=== PATIENT | female | born 1955 | race Caucasian/White ===

== ENCOUNTER 2017-05-18 13:55 | Outpatient (CLI) | payer OTHER ==
--- NOTE | 2017-05-18 15:48 | SJPRAD ---
RIGHT KNEE TWO VIEWS: History: 61-year-old female with left knee pain, for comparison. FINDINGS: Two views of the right knee demonstrates tricompartment arthrosis and degenerative changes with narr owing of the medial compartment. IMPRESSION: Tricompartment osteoarthrosis with narrowing, particularly of the medial compartment, followed by th e femoral patellar compartment. No acute fracture or dislocation. POS: OFF
--- NOTE | 2017-05-18 15:49 | SJPRAD ---
LEFT KNEE TWO VIEWS: History: 61-year-old female with left knee pain. FINDINGS: Tricompartment arthrosis and degenerative changes with narrowing of the medial compartment in partic ular. No fracture, dislocation, or other acute process. IMPRESSION: No fracture or dislocation. Degenerative changes. POS: OFF
== END 2017-05-18 13:56 | disposition home or self-care (01) ==
LOC: MWLC RAD 13:55
PROVIDERS: ATTEND Family Medicine
DX: M25.562 Pain in left knee (principal); M17.11 Unilateral primary osteoarthritis, right knee

== ENCOUNTER 2018-01-02 06:47 | Outpatient (CLI) | payer OTHER | END 2018-01-02 06:48 | disposition home or self-care (01) | LOC: BICULT 06:47 | PROVIDERS: ATTEND Family Medicine | DX: M79.89 Other specified soft tissue disorders (principal) ==

== ENCOUNTER 2018-01-23 06:41 | Outpatient (CLI) | payer OTHER | END 2018-01-23 06:42 | disposition home or self-care (01) | LOC: BICULT 06:41 | PROVIDERS: ATTEND Family Medicine | DX: N85.2 Hypertrophy of uterus (principal); R93.8 Abnormal findings on diagnostic imaging of other specified body structures | CPT/HCPCS: 76856 ==

== ENCOUNTER 2018-05-23 15:41 | Outpatient (CLI) | payer OTHER | END 2018-05-23 15:42 | disposition home or self-care (01) | LOC: BICMAMMO 15:41 | PROVIDERS: ATTEND Family Medicine | DX: Z12.31 Encounter for screening mammogram for malignant neoplasm of breast (principal); Z85.3 Personal history of malignant neoplasm of breast | CPT/HCPCS: 77063; 77067 ==

== ENCOUNTER 2018-10-19 09:54 | Day surgery (SDC) | payer OTHER ==
[2018-10-18 09:45] VITALS: BMI 39.0
[2018-10-18 10:58] LABS: #Basophils 0.1 thou/uL (0.0-0.2); #Eosinphils 0.2 thou/uL (0.0-0.7); #Lymphocytes 2.4 thou/uL (1.20-3.40); #Monocytes 0.9 thou/uL (0.11-0.59); #Neutrophils 4.5 thou/uL (1.40-6.50); %Basophils 0.8 % (0.0-1.0); %Lymphocytes 29.6 % (21.0-51.0); %Monocytes 11.3 % (0.0-10.0); %Neutrophils 55.3 % (42.0-75.0); Hemoglobin 13.2 g/dL (12.0-16.0); Mean Corpuscular HGB CONC 31.2 g/dL (32.0-36.0); Mean Corpuscular Hemoglobin 26.2 pg (27.0-31.0); Mean Corpuscular Volume 83.9 fL (78.0-98.0); Mean Platelet Volume 9.9 fL (7.4-10.4); Platelet Count 178 thou/uL (130-400); RBC Distribution Width 12.6 % (11.5-14.5); Red Blood Cell (RBC) Count 5.04 mill/uL (4.20-5.40); White Blood Cell (WBC) Count 8.1 thou/uL (4.8-10.8)
[2018-10-19] MEDS ORDERED: Dexamethasone 20 MG/5 ML VIAL ONE (12:11)
[2018-10-19] MEDS ORDERED: PROPOFOL 200 MG/20 ML VIAL ONE (12:11)
[2018-10-19] MEDS ORDERED: Ondansetron PF 4 MG/2 ML Vial ONE (12:11)
[2018-10-19] MEDS ORDERED: Lidocaine 1% PF 5 ML VIAL ONE (12:11)
[2018-10-19] MEDS ORDERED: Fentanyl 100 MCG/2 ML VIAL ONE (12:15)
[2018-10-19] MEDS ORDERED: Midazolam HCl 2 mg/2 ml Vial ONE (12:15)
--- NOTE | 2018-10-19 22:31 | OP ---
DATE OF PROCEDURE: 10/19/2018 PREOPERATIVE DIAGNOSES: 1. A 63-year-old female with prior estrogen receptor-positive breast cancer, on tamoxifen therapy for many years. 2. Recent postmenopausal bleeding with thickened endometrial lining noted. Endometrial biopsy initially was benign. POSTOPERATIVE DIAGNOSES: 1. A 63-year-old female with prior estrogen receptor-positive breast cancer, on tamoxifen therapy for many years. 2. Recent postmenopausal bleeding with thickened endometrial lining noted. Endometrial biopsy initially was benign. 3. Appears to have uterine synechiae, possible polyp. PROCEDURE PERFORMED: Diagnostic hysteroscopy with dilation and curettage with TruClear incisor, removal of synechial areas. FLUID DEFICIT: 150 mL of normal saline. COMPLICATIONS: None. COUNTS: Correct x2. ANTIBIOTICS: 2 g Ancef, on-call to OR. FINDINGS: 1. The uterine lining had some elevated roughened areas that were somewhat hyperemic, possibly consistent with synechial changes. No true ulcerative or exophytic lesions were seen. The remainder of the cavity was sampled with the incisor TruClear resection instrument and then also sharp curettage. The cavity was sent for final diagnosis. DISPOSITION: Recovery room, stable. DESCRIPTION OF OPERATIVE PROCEDURE: The patient received general with LMA, was prepped and draped in usual sterile fashion in dorsal lithotomy position. In and out catheterization of bladder was performed with 200 mL of clear urine. A side-arm speculum was placed in the vagina. The anterior lip of the cervix was grasped with single-tooth tenaculum. The uterus sounded to 9 cm and the cervix was sequentially dilated to a size 16 mm Krishna dilator. The diagnostic 5 mm TruClear system hysteroscope was introduced through the cervical os into the endocervical, endometrial cavity with the previously mentioned findings. Then, the incisor 5 mm instrument was utilized under direct visualization with evaluation and excision of some of the synechial appearing tissue. Then sharp curettage was performed. All the final pathology specimens were sent including the endometrial curettings and the incisor directed biopsies. The tenaculum was then removed along with the speculum and the patient was then awakened from anesthesia. There was no active vaginal bleeding noted. Plan is to follow up the pathology. She will be observed in the PACU and discharged home when she meets criteria for this. She has a followup in approximately 4 weeks and within a week for the pathology review. Job ID: [id number]
== END 2018-10-19 15:25 | disposition home or self-care (01) ==
LOC: SDC 09:54
PROVIDERS: ATTEND Obstetrics & Gynecology
PROC: 0UDB8ZX Extraction of Endometrium, Via Natural or Artificial Opening Endoscopic, Diagnostic (ICD-10-PCS; principal; 2018-10-19)
DX: N95.0 Postmenopausal bleeding (principal); M81.0 Age-related osteoporosis without current pathological fracture; Z85.3 Personal history of malignant neoplasm of breast; Z98.890 Other specified postprocedural states
CPT/HCPCS: 36415; 85025; 86850; 86900; 86901; 88305; J1100; J2001; J2250; J2405; J2704; J3010

== ENCOUNTER 2019-05-24 15:20 | Outpatient (CLI) | payer OTHER ==
--- NOTE | 2019-05-24 16:05 | MMO ---
Bilateral MAMMO Bilat Screen [facility]. CLINICAL HISTORY: Patient is 63 years old and is seen for screening. The patient has no family history of breast cancer. The patient has a history of lobular carcinoma in-situ (LCIS) in the left breast at age 51. VIEWS: The views performed were: bilateral craniocaudal with tomosynthesis and bilateral mediolateral oblique with tomosynthesis. FILMS COMPARED: The present examination has been compared to prior imaging studies performed at [facility] on 05/23/2018, and at [facility] on 08/14/2014, 10/01/2015 and 12/14/2016. This study has been interpreted with the assistance of computer-aided detection. MAMMOGRAM FINDINGS: There are scattered fibroglandular densities. Post-surgical scar left breast. There are no suspicious masses, suspicious calcifications, or new areas of architectural distortion. IMPRESSION: THERE IS NO MAMMOGRAPHIC EVIDENCE OF MALIGNANCY. A ROUTINE FOLLOW-UP MAMMOGRAM IN 1 YEAR IS RECOMMENDED. THE RESULTS OF THIS EXAM WERE SENT TO THE PATIENT. ACR BI-RADS Category 2 - Benign finding MAMMOGRAPHY NOTE: 1. A negative mammogram report should not delay a biopsy if a dominant of clinically suspicious mass is present. 2. Approximately 10% to 15% of breast cancers are not detected by mammography. 3. Adenosis and dense breasts may obscure an underlying neoplasm. Reported by: Ezekiel FARFAN Electonically Signed: [id number]
== END 2019-05-24 15:21 | disposition home or self-care (01) ==
LOC: BICMAMMO 15:20
PROVIDERS: ATTEND Family Medicine
DX: Z12.31 Encounter for screening mammogram for malignant neoplasm of breast (principal); Z85.3 Personal history of malignant neoplasm of breast
CPT/HCPCS: 77063; 77067

== ENCOUNTER 2019-09-13 14:42 | Outpatient (CLI) | payer OTHER ==
--- NOTE | 2019-09-13 15:31 | BD ---
DEXA BONE MINERAL DENSITY STUDY: HISTORY: Encounter for a screening for osteoporosis. COMPARISON: None. FINDINGS: Lumbar Spine: BMD (g/cm2) L1 0.768 T-Score: -1.7 -0.3 L2 0.892 T-Score: -1.2 0.4 L3 0.898 T-Score: -1.7 0.0 L4 1.114 T-Score: 0.5 2.2 L1-L4 0.929 T-Score: -1.1 0.5 Left: Femoral Neck: 0.644 T-Score: -1.8 -0.4 Total Femur: 0.823 T-Score: -1.0 0.1 WHO CALCIFICATION: Osteopenia. Impression: Osteopenia with elevated fracture risk. POS: OFF
== END 2019-09-13 14:43 | disposition home or self-care (01) ==
LOC: BICMAMMO 14:42
PROVIDERS: ATTEND Obstetrics & Gynecology
DX: Z13.820 Encounter for screening for osteoporosis (principal); M85.89 Other specified disorders of bone density and structure, multiple sites
CPT/HCPCS: 77080

== ENCOUNTER 2019-11-13 07:05 | Day surgery (SDC) | payer OTHER ==
[2019-11-12 10:37] LABS: Mean Corpuscular HGB CONC 31.4 g/dL (32.0-36.0); Mean Corpuscular Hemoglobin 27.1 pg (27.0-31.0); Mean Corpuscular Volume 86.3 fL (78.0-98.0); Mean Platelet Volume 11.1 fL (7.4-10.4); Platelet Count 156 thou/uL (130-400); RBC Distribution Width 12.6 % (11.5-14.5); Red Blood Cell (RBC) Count 4.82 mill/uL (4.20-5.40); White Blood Cell (WBC) Count 8.7 thou/uL (4.8-10.8)
[2019-11-13] MEDS ORDERED: Famotidine/PF 20 mg/2ml Vial ONE (07:31)
[2019-11-13] MEDS ORDERED: Gabapentin 300 MG CAP ONE (07:31)
[2019-11-13] MEDS ORDERED: CeleCOXIB 100 MG CAP ONE (07:31)
[2019-11-13] MEDS ORDERED: Bupivacaine PF 0.5% 30 ML VIAL ONE (07:42)
[2019-11-13] MEDS ORDERED: Lidocaine 1% w/Epinephrine 1:100K 20 ML VIAL ONE (07:42)
[2019-11-13] MEDS ORDERED: Fentanyl 250 MCG/5 ML VIAL ONE (08:52)
[2019-11-13] MEDS ORDERED: Midazolam HCl 2 mg/2 ml Vial ONE (08:53)
[2019-11-13] MEDS ORDERED: EPHEDRINE 25 MG/5 ML SYRINGE ONE (09:56)
[2019-11-13] MEDS ORDERED: Ondansetron PF 4 MG/2 ML Vial ONE (09:56)
[2019-11-13] MEDS ORDERED: PROPOFOL 200 MG/20 ML VIAL ONE (09:56)
[2019-11-13] MEDS ORDERED: diphenhydrAMINE 50 MG/ML VIAL ONE (09:56)
[2019-11-13] MEDS ORDERED: Dexamethasone 20 MG/5 ML VIAL ONE (09:56)
[2019-11-13] MEDS ORDERED: Rocuronium Bromide 10 MG/ML (10ML VIAL) ONE (09:56)
[2019-11-13] MEDS ORDERED: Succinylcholine Chloride 20 MG/ML 10 ml SYRINGE FS ONE (09:56)
[2019-11-13] MEDS ORDERED: Glycopyrrolate 0.2 MG/ML 5 ML SYRINGE ONE (09:56)
[2019-11-13] MEDS ORDERED: Acetaminophen 325 MG TAB PO PRN (11:41)
[2019-11-13] MEDS ORDERED: Simethicone Chewable 80 MG TAB PO PRN (11:41)
[2019-11-13] MEDS ORDERED: Bisacodyl 10 MG SUPP PR PRN (11:41)
[2019-11-13] MEDS ORDERED: Promethazine HCl 25 MG/ML VIAL IM PRN (11:41)
[2019-11-13] MEDS ORDERED: traMADol HCl 50 MG TAB PO PRN ×2 (11:41)
[2019-11-13] MEDS ORDERED: diphenhydrAMINE 25 MG CAP PO PRN (11:41)
[2019-11-13] MEDS ORDERED: Ondansetron PF 4 MG/2 ML Vial IVP PRN (11:41)
[2019-11-13] MEDS ORDERED: Morphine 2 MG/ML SYRINGE SLOW IVP PRN (11:41)
[2019-11-13] MEDS: Lactated Ringer's 1,000 ML IV SCH (17:25)
[2019-11-13] MEDS: Ketorolac Tromethamine 30 MG/ML VIAL IVP SCH ×2 (17:25→18:13)
[2019-11-13] MEDS ORDERED: Sodium Chloride 0.9% 10 ML ONE (18:11)
[2019-11-14] MEDS: Ketorolac Tromethamine 30 MG/ML VIAL IVP SCH ×2 (00:03→05:40)
[2019-11-14] MEDS: Lactated Ringer's 1,000 ML IV SCH ×2 (00:16→10:07)
[2019-11-14 06:15] LABS: Mean Corpuscular HGB CONC 31.1 g/dL (32.0-36.0); Mean Corpuscular Hemoglobin 26.7 pg (27.0-31.0); Mean Corpuscular Volume 85.9 fL (78.0-98.0); Mean Platelet Volume 10.2 fL (7.4-10.4); Platelet Count 153 thou/uL (130-400); RBC Distribution Width 12.8 % (11.5-14.5); Red Blood Cell (RBC) Count 4.49 mill/uL (4.20-5.40); White Blood Cell (WBC) Count 16.3 thou/uL (4.8-10.8)
--- NOTE | 2019-11-14 07:39 | PDOC.EVN ---
Event Note - Event Note Event Note: S: Tolerating diet. Good pain control. No nausea. Passing flatus. O: AFVSS U/O 2950 ml HCT 38% ABD: soft/non distended. Trochar sites c/d/i..Expected post op tenderness. A/P: Post op day 1 from robotic tlh/bso for recurrent post menopausal bleeding and endometrial hyperplasia. Doing well. D/c home today after voids. has follow up post op day 2 and 6 weeks.
--- NOTE | 2019-11-14 08:11 | DIS ---
DATE OF ADMISSION: 11/13/2019 DATE OF DISCHARGE: 11/14/2019 DIAGNOSES: 1. Postmenopausal bleeding. 2. Endometrial hyperplasia. 3. History of tamoxifen therapy. PROCEDURE PERFORMED: Robotic TLH-BSO. SUMMARY OF HOSPITAL COURSE: Ms. Lira is a 64-year-old [place] female with history of left breast cancer approximately over 10 years ago, but had extensive tamoxifen therapy in the past, who had an episode of postmenopausal bleeding evaluated in 2019. She had a hysteroscopy, D and C performed at that time. Benign findings were noted with some mild changes and simple hyperplasia. She did well until recently started having postmenopausal bleeding again. She was assessed. She had a thickened endometrial lining of over 11 mm with endometrial biopsy showing simple endometrial hyperplasia. She underwent definitive surgical therapy with a robotic TLH-BSO on 11/12. Postoperatively, she has done well. Vital signs remained stable. Urine output has been excellent over 2900 mL of past 24 hours. She is ambulating and voiding and tolerating a regular diet and passing flatus. She had a postoperative hematocrit this morning of 38.6%. She will be discharged home to continue her maintenance medications along with tramadol 50 mg q.6 hours p.r.n. pain. She has also told she can use [id number] Tylenol, Motrin for mild pain. She has a followup in 2 and 6 weeks. Pathology is pending. Job ID: [id number]
--- NOTE | 2019-11-14 09:01 | OP ---
DATE OF PROCEDURE: 11/13/2019 PREOPERATIVE DIAGNOSES: 1. A 64-year-old female with history of postmenopausal bleeding. 2. Simple endometrial hyperplasia. 3. Long history of prior tamoxifen usage. 4. History of estrogen receptor positive, progesterone receptor positive breast cancer. POSTOPERATIVE DIAGNOSES: 1. A 64-year-old female with history of postmenopausal bleeding. 2. Simple endometrial hyperplasia. 3. Long history of prior tamoxifen usage. 4. History of estrogen receptor positive, progesterone receptor positive breast cancer. PROCEDURES PERFORMED: Robotic total laparoscopic hysterectomy and bilateral salpingo-oophorectomy. DESIGN SALES CONSULTANT SURGEON: Ning Be MD ANESTHESIA: General endotracheal. ESTIMATED BLOOD LOSS: 50 mL. COMPLICATIONS: None. COUNTS: Correct x2. ANTIBIOTICS: 2 g Ancef on-call to OR. FINDINGS: 1. Normal-appearing bilateral postmenopausal tubes and ovaries. 2. Adenomyotic-appearing uterus, approximately 8-week size. 3. Clear urine in Wu catheter postprocedure and bladder was watertight to distention over 300 mL postprocedure. 4. Bilateral ureteral peristalsis visualized postprocedure. DISPOSITION: To recovery room. DESCRIPTION OF PROCEDURE: The patient previously received informed consent in regard to surgery. She was taken back to the operating room, where she received a general endotracheal anesthetic agent without complications. She was then placed in dorsal lithotomy position and prepped and draped in usual sterile fashion. At this time, a side-arm speculum was placed in the vagina after Wu catheter had been placed. The cervix was grasped with a single-tooth tenaculum. The uterus sounded to 8 cm. The cervix was then sequentially dilated to a size 16 Krishna dilator, and then a size 8-cm LINDA uterine manipulator with a 3.5 cm cervical cup was placed in usual fashion. Tenaculum and speculum had been removed. Attention was then turned to the abdomen, where prospective trocar sites were infiltrated with 0.5% Marcaine with epinephrine. A 10-cm supraumbilical incision was made. Veress needle was entered into the peritoneal cavity, and the patient's pressure was noted to be less than 5 mmHg. The abdomen was insufflated to patient's pressure of 15, approximately 4.5 L of carbon dioxide gas. The Veress needle was then removed. A size 12-mm trocar was then placed in the supraumbilical incision, and then the robotic laparoscope was introduced through the trocar sleeve confirming proper entry. The patient was then placed in a more Trendelenburg position, and bilateral lower quadrant 8-mm robotic trocars were placed under laparoscopic guidance along with the right upper quadrant 11-mm assistant to the vice president port. We then docked the robot in usual fashion. I then broke scrub, and I carried out the procedure from the operative console while my assistants remained at the bedside. The uterus was elevated from the pelvis with previously mentioned findings. The left fallopian tube was grasped by my assistant to the vice president. The left infundibulopelvic ligament was then coagulated hugging close to the ovary and away from the pelvic sidewall, it was coagulated and transected. Serial coagulation of the broad ligament hugging close to the uterine specimen was carried out until the left round ligament was reached. It was coagulated and transected, and then the anterior leaf of the broad ligament was entered. The vesicouterine peritoneum was incised in a layering technique, dropping the bladder past the cervicovaginal angle. The uterine vessels were then skeletonized in a layering technique, obtaining hemostasis as this was carried out and then the uterine vessels were coagulated in the internal cervical os region. The right fallopian tube was then grasped by my assistant to the vice president. The right IP ligament was coagulated, hugging close to the ovary and then this was transected. The patient had worm-like IP ligament vessels that were dilated on the right pelvic sidewall. This was taken with care to meticulously coagulate the vessels prior to each transection. I then coagulated the right round ligament and transected this and entered the anterior leaf of the broad ligament, dissecting the vesicouterine peritoneum, meeting in the midline where it had previously been dissected from the patient's left side. Layering on the broad ligament was carried out to the window that had been created from the dissection of the IP ligament was reached and this created an adequate hemostasis due to the wormy-like vessels on the infundibulopelvic ligament. The uterine vessels were then skeletonized and coagulated in the internal cervical os region. We then distended the bladder to confirm that it had been adequately dissected, past the cervicovaginal location, and it was confirmed to be well past the anticipated anterior colpotomy. The anterior colpotomy was then created starting at the 12 o'clock to 3 o'clock and then 12 o'clock to 9 o'clock. The uterine vessels were again coagulated meticulously at the 3 o'clock and 9 o'clock position securing hemostasis. We then completed the colpotomy from 6 o'clock to 3 o'clock and 6 o'clock to 9 o'clock. The uterine specimen was then brought down into the vaginal vault. During this process, there was one area of bleeder that was noted to occur after the specimen was brought into the vaginal vault and by the right uterine vessel. This was grasped with a needle carrier driver and then coagulated on end with a bipolar fenestrated cautery. Hemostasis was confirmed and was obtained. The vaginal cuff was then coagulated of any areas there were oozing prior to cuff closure. My assistant to the vice president then brought in a Stratafix suture. I began suturing the right vaginal angle, starting on the right side full-thickness closure from the right angle to the midline and to the left angle with good closure noted. Hemostasis was confirmed. We then again suctioned and irrigated the pelvis. All pedicle sites were noted to be hemostatic. The courses of each ureter were visualized and the peristalsis was noted. Clear urine was draining from the Wu catheter. We dropped the pressure down below 8 mm pressure and hemostasis on the pedicle sites again was confirmed. We then undocked the robot, and the trocar sleeves were removed. I then rescrubbed. Then, we closed the deep fascial suture of [id number] stitch fashion of the umbilical incision, and then all the other trocar sites were closed with Monocryl 4-0 in subcuticular fashion. The vaginal vault was checked with a sponge stick and hemostasis was confirmed after the specimen had been removed. The patient was awakened from anesthesia, transferred to recovery room in stable condition. Job ID: [id number]
[2019-11-14 11:40] VITALS: BP 121/74; TEMP 97.7
[2019-11-18] MEDS ORDERED: Ibuprofen 800 MG TAB PO SCH (09:00)
== END 2019-11-14 12:04 | disposition home or self-care (01) ==
LOC: SDC 07:05 → 3SW 13:51 → SDC 11-14 12:04
PROVIDERS: ATTEND Obstetrics & Gynecology
PROC: 0UT24ZZ Resection of Bilateral Ovaries, Percutaneous Endoscopic Approach (ICD-10-PCS; principal; 2019-11-13)
PROC: 0UT74ZZ Resection of Bilateral Fallopian Tubes, Percutaneous Endoscopic Approach (ICD-10-PCS; principal; 2019-11-13)
PROC: 0UT94ZZ Resection of Uterus, Percutaneous Endoscopic Approach (ICD-10-PCS; principal; 2019-11-13)
DX: N80.0 Endometriosis of uterus (principal); N72 Inflammatory disease of cervix uteri; N83.312 Acquired atrophy of left ovary; N83.311 Acquired atrophy of right ovary; Z85.3 Personal history of malignant neoplasm of breast; Z79.899 Other long term (current) drug therapy
CPT/HCPCS: 36415; 85027; 86850; 86900; 86901; 88307; J0690; J1100; J1200; J1885; J2250; J2405; J2704; J3010; S0020; S0028

== ENCOUNTER 2020-05-28 12:35 | Outpatient (CLI) | payer OTHER ==
--- NOTE | 2020-05-28 14:13 | MMO ---
Bilateral MAMMO Bilat Screen [facility]. CLINICAL HISTORY: Patient is 64 years old and is seen for screening. The patient has no family history of breast cancer. The patient has a history of lobular carcinoma in-situ (LCIS) in the left breast at age 51. The patient has a history of left Excisional Biopsy at age 51 - malignant and left Lumpectomy at age 51 - malignant. VIEWS: The views performed were: bilateral craniocaudal and bilateral mediolateral oblique. FILMS COMPARED: The present examination has been compared to prior imaging studies performed at [facility] on 05/23/2018 and 05/24/2019, and at [facility] on 10/01/2015 and 12/14/2016. This study has been interpreted with the assistance of computer-aided detection. MAMMOGRAM FINDINGS: There are scattered fibroglandular densities. Benign calcifications are noted bilaterally. There are stable post-operative changes. There are no suspicious masses, suspicious calcifications, or new areas of architectural distortion. IMPRESSION: THERE IS NO MAMMOGRAPHIC EVIDENCE OF MALIGNANCY. A ROUTINE FOLLOW-UP MAMMOGRAM IN 1 YEAR IS RECOMMENDED. ACR BI-RADS Category 2 - Benign finding MAMMOGRAPHY NOTE: 1. A negative mammogram report should not delay a biopsy if a dominant of clinically suspicious mass is present. 2. Approximately 10% to 15% of breast cancers are not detected by mammography. 3. Adenosis and dense breasts may obscure an underlying neoplasm. Reported by: ARTHUR GIORDANO MD Electonically Signed: [id number]
== END 2020-05-28 12:36 | disposition home or self-care (01) ==
LOC: BICMAMMO 12:35
PROVIDERS: ATTEND Family Medicine
DX: Z12.31 Encounter for screening mammogram for malignant neoplasm of breast (principal); Z86.000 Personal history of in-situ neoplasm of breast; Z98.890 Other specified postprocedural states
CPT/HCPCS: 77067

== ENCOUNTER 2020-10-03 10:53 | Outpatient (CLI) | payer OTHER | END 2020-10-03 10:54 | disposition home or self-care (01) | LOC: BICRAD 10:53 | PROVIDERS: ATTEND Family Medicine | DX: M47.812 Spondylosis without myelopathy or radiculopathy, cervical region (principal); M25.512 Pain in left shoulder; M19.012 Primary osteoarthritis, left shoulder | CPT/HCPCS: 72040 ==

== ENCOUNTER 2021-06-09 15:17 | Outpatient (CLI) | payer OTHER | END 2021-06-09 15:18 | disposition home or self-care (01) | LOC: BICMAMMO 15:17 | PROVIDERS: ATTEND Family Medicine | DX: Z12.31 Encounter for screening mammogram for malignant neoplasm of breast (principal); Z85.3 Personal history of malignant neoplasm of breast; Z98.890 Other specified postprocedural states | CPT/HCPCS: 77067 ==

== ENCOUNTER 2021-06-24 12:36 | Outpatient (CLI) | payer OTHER | END 2021-06-24 12:37 | disposition home or self-care (01) | LOC: BICMRI 12:36 | PROVIDERS: ATTEND Family Medicine | DX: M54.2 Cervicalgia (principal); M50.322 Other cervical disc degeneration at C5-C6 level; M47.812 Spondylosis without myelopathy or radiculopathy, cervical region; M48.02 Spinal stenosis, cervical region | CPT/HCPCS: 72141 ==

== ENCOUNTER 2021-07-03 08:26 | Outpatient (CLI) | payer OTHER | END 2021-07-03 08:27 | disposition home or self-care (01) | LOC: BICMAMMO 08:26 | PROVIDERS: ATTEND Family Medicine | DX: M81.8 Other osteoporosis without current pathological fracture (principal); R10.84 Generalized abdominal pain; M85.88 Other specified disorders of bone density and structure, other site; Z90.710 Acquired absence of both cervix and uterus | CPT/HCPCS: 76700; 76856; 77080 ==

== ENCOUNTER 2021-12-08 12:39 | Outpatient (CLI) | payer OTHER, MEDICAID | END 2021-12-08 12:40 | disposition home or self-care (01) | LOC: BICRAD 12:39 | PROVIDERS: ATTEND Family Medicine | DX: J40 Bronchitis, not specified as acute or chronic (principal) | CPT/HCPCS: 71046 ==

== ENCOUNTER 2022-07-21 11:04 | Outpatient (CLI) | payer MEDICARE, MEDICAID | END 2022-07-21 11:05 | disposition home or self-care (01) | LOC: BICMAMMO 11:04 | PROVIDERS: ATTEND Family Medicine | DX: Z12.31 Encounter for screening mammogram for malignant neoplasm of breast (principal); Z98.890 Other specified postprocedural states | CPT/HCPCS: 77063; 77067 ==

== ENCOUNTER 2022-11-15 13:14 | Outpatient (CLI) | payer MEDICARE, MEDICAID ==
[~2022-11-15 13:14] MED LIST: Iopamidol 370 76% 100 ML VIAL ONE
== END 2022-11-15 13:15 | disposition home or self-care (01) ==
LOC: BICCT 13:14 → CT 13:15
PROVIDERS: ATTEND Nurse Practitioner Family
DX: R10.84 Generalized abdominal pain (principal)
CPT/HCPCS: 74160; 82565; Q9967

== ENCOUNTER 2023-05-17 15:22 | Outpatient (CLI) | payer MEDICARE, MEDICAID | END 2023-05-17 15:23 | disposition home or self-care (01) | LOC: BICMAMMO 15:22 | PROVIDERS: ATTEND Family Medicine | DX: M81.0 Age-related osteoporosis without current pathological fracture (principal); M85.89 Other specified disorders of bone density and structure, multiple sites; N95.9 Unspecified menopausal and perimenopausal disorder | CPT/HCPCS: 77080 ==

== ENCOUNTER 2023-08-03 13:43 | Outpatient (CLI) | payer MEDICARE, MEDICAID | END 2023-08-03 13:44 | disposition home or self-care (01) | LOC: BICMAMMO 13:43 | PROVIDERS: ATTEND Family Medicine | DX: Z12.31 Encounter for screening mammogram for malignant neoplasm of breast (principal); Z98.890 Other specified postprocedural states | CPT/HCPCS: 77063; 77067 ==

== ENCOUNTER 2024-04-19 08:51 | Outpatient (CLI) | payer MEDICARE, MEDICAID | END 2024-04-19 08:52 | disposition home or self-care (01) | LOC: BICCT 08:51 | PROVIDERS: ATTEND Family Medicine | DX: R10.32 Left lower quadrant pain (principal); K42.0 Umbilical hernia with obstruction, without gangrene | CPT/HCPCS: 74177 ==

== ENCOUNTER 2025-03-06 09:06 | Outpatient (CLI) | payer MEDICARE, MEDICAID | END 2025-03-06 09:07 | disposition home or self-care (01) | LOC: BICMAMMO 09:06 | PROVIDERS: ATTEND Family Medicine | DX: M81.0 Age-related osteoporosis without current pathological fracture (principal); M85.89 Other specified disorders of bone density and structure, multiple sites | CPT/HCPCS: 77080 ==